=== PATIENT | female | born 1965 | race Caucasian/White ===

== ENCOUNTER → 2020-11-06 09:58 | Outpatient (CLI) | payer BC, SELFPAY | DX: R10.9 Unspecified abdominal pain (principal); R51.9 Headache, unspecified; R11.2 Nausea with vomiting, unspecified; R19.7 Diarrhea, unspecified | CPT/HCPCS: 87635; U0005; U0003 ==

== ENCOUNTER 2021-09-12 07:39 | Emergency (ER) | payer BC, SELFPAY ==
[2021-09-12 07:39] VITALS: BP 135/85; PULSE 87; RESP 16; TEMP 36.1; O2SAT 96; BMI 38.0
[2021-09-12 07:41] VITALS: BP 135/85; PULSE 87; RESP 16; TEMP 36.1; O2SAT 96
[2021-09-12 07:47] VITALS: O2SAT 90; O2SAT 96
[2021-09-12 08:01] VITALS: O2SAT 96
--- NOTE | 2021-09-12 08:04 | EDS_ITS ---
HPI History of Present Illness Chief Complaint: Shortness of Breath Informant: patient Narrative Narrative: Patient is on day 6 of symptoms. She is concerned she may have Covid. 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 She states they see 5000 people every 3 hours through the store. She started with some fevers myalgias. She has had slight runny nose. She has a dry mouth but not a sore throat. She has a little bit of a cough mostly when she talks a lot. No productivity. No hemoptysis. No chest pain. She has slight myalgias. She has not had nausea vomiting or diarrhea. However, she has significantly reduced appetite. She has no interest in food. She states her taste is significantly off and she has no smell at all. She did get the influenza shot back in July but has not had the Covid vaccine. Nothing really makes her symptoms better or worse. Despite occasional cough, she is not actually short of breath. No abdominal pain. [facility] Medical History Diarrhea Fatigue Finger Surgery Incontinence Severe headache Home Medications dexamethasone [Decadron] 6 mg PO DAILY #9 tab 09/12/21 [Rx Last Taken Unknown] Allergy/AdvReac Type Severity Reaction Status Date / Time iodine Allergy Rash Verified 09/12/21 07:39 meperidine [From Demerol] Allergy unknown Verified 09/12/21 07:39 Family History Mother Diabetes Brother Diabetes Grandfather Myocardial infarction Surgical History History of tonsillectomy Hx of section Social History Smoking Status: Former smoker alcohol intake: never ROS ROS ED Constitutional Constitutional ED: Reports chills, fever(s), subjective and sweats; Denies weight loss Eyes Eyes: Denies blurry vision ENT ENT ED: Reports rhinorrhea; Denies sore throat Cardiovascular Cardiovascular: Denies chest pain Respiratory/Chest Respiratory/Chest: Reports cough; Denies dyspnea, dyspnea on exertion or sputum Gastrointestinal Gastrointestinal: Reports other Details: No appetite. ; Denies abdominal pain, diarrhea, nausea or vomiting Genitourinary Genitourinary ED: Denies dysuria Musculoskeletal Musculoskeletal: Reports myalgias; Denies arthralgias Integumentary Denies rash Neurologic Neurologic: Denies headache(s), paresthesias or weakness Endocrine Endocrinology: Denies polydipsia or polyuria Allergic/Immunologic Allergic/Immunologic ED: Denies mouth swelling or urticaria EXAM Physical Exam Const Vital Signs: 09/12/21 07:39 09/12/21 07:41 09/12/21 07:47 Temperature 96.9 F L 96.9 F L Temperature Source Temporal Temporal Pulse Rate 87 87 Respiratory Rate 16 16 Respiratory Effort Short of Breath Labored Blood Pressure 135/85 H 135/85 H Blood Pressure Mean 101 101 Pulse Ox 96 96 Oxygen Delivery Method Room Air Room Air Room Air Positive well nourished and well developed General Appearance ED: well developed and NAD; Negative for pallor HEENT Reports dry mucous membranes Negative for trauma or tenderness Mouth ED: Yes dry mucous membranes Mouth: dry mucous membranes Eyes EOMs intact bilaterally General Eye ED: Negative for pale conjunctiva or scleral icterus Neck no JVD Chest Wall inspection of chest normal Resp normal respiratory effort and clear to auscultation bilaterally Effort and Inspection: Negative for pain with movement Auscultation: Negative for rales, rhonchi or wheezes Cardio regular rate and regular rhythm GI normal to inspection, nondistended, normoactive bowel sounds and non-tender Palpation: soft Back/Spine no CVA tenderness Extremity General Extremety ED: Negative for edema or tenderness General Extremity: Negative for edema Neuro Sensorium / Orientation: alert Psych mental status grossly normal Skin no rashes or lesions noted General Skin Exam: Negative for jaundice or pallor MDM MDM MDM Narrative Medical decision making narrative: Patient's x-ray is consistent with Covid. Her Covid is positive. When she walks she felt well. Her saturations were 90% which were a little bit lower than normal but do not meet criteria for oxygen. We can get her home. However I told her to be very cautious. We discussed reasons to return. If she can check her oxygen sats at home that would be great. Although she does not meet criteria for oxygen here, her sats are a little lower. I will start Decadron because of this. I will also put in referral for monoclonal therapy. Radiography Diagnostic Testing: Clinical Impression(s) from Imaging Studies Chest X-Ray 09/12/21 08:09 IMPRESSION: Underexpanded lungs with subtle opacifications in both lung espinoza, no demonstrated effusions. Differential as described above. Follow-up recommended to ensure resolution Electronically Signed: Floyd Iraheta MD at 8:31 EST , Service support , Discharge Plan Triage Chief Complaint: Shortness of Breath ED Provider: Morris Castrejon Dx/Rx/DC Orders Clinical Impression: Pneumonia due to 2019 novel coronavirus Instructions: Caring for Someone Who Has COVID-19 Prescriptions: New dexamethasone [Decadron] 6 mg tablet 6 mg PO DAILY Qty: 9 RF: 0 Other Ambulatory Orders: COVID Outpatient Monoclonal Antibody Referral (Routine) Timeframe: 1 Day Facility: [facility] - Location: [facility] Ordered By: Dr. Morris Castrejon Primary Care Provider: Care Physician,No Primary Referrals: Wendy Aleman MD [STAFF PHYSICIAN] - 1 Week if not improving Care Physician,No Primary [Primary Care Provider] - Disposition Disposition: Home, Self Care
--- NOTE | 2021-09-12 08:09 | RAD_ITS ---
STUDY: X-RAY CHEST REASON FOR EXAM: Female, 56 years old. Fever and cough TECHNIQUE: Single AP portable view of the chest. COMPARISON: 10/19/2012 FINDINGS: The lungs are underexpanded with chronic elevation of the right hemidiaphragm. Subtle interstitial opacifications in both lung espinoza suggest pneumonitis but can also be seen with pulmonary vascular congestion, or early changes of Covid pneumonia There is no demonstrated pleural abnormality. Normal size heart. Normal mediastinum and dolly. Normal visualized pulmonary arteries. Normal visualized aortic arch and descending thoracic aorta. There are diffuse degenerative changes of the visualized thoracic spine. There is degenerative osteoarthritis of the bilateral shoulders. There is no demonstrated abnormality of the visualized soft tissue structures of the upper abdomen. RAD/Chest 1 View (Portable) IMPRESSION: Underexpanded lungs with subtle opacifications in both lung espinoza, no demonstrated effusions. Differential as described above. Follow-up recommended to ensure resolution Electronically Signed: Floyd Iraheta MD at 8:31 EST , Service support ,
[2021-09-12] MEDS: dexAMETHasone 4 MG Tablet 6 MG PO (09:26)
[2021-09-12 09:28] VITALS: BP 117/67; PULSE 65; RESP 16; O2SAT 98
== END 2021-09-12 09:29 | disposition home or self-care (01) ==
PROVIDERS: Emergency Provider Emergency Medicine
DX: U07.1 COVID-19 (principal); J12.82 Pneumonia due to coronavirus disease 2019; Z87.891 Personal history of nicotine dependence
CPT/HCPCS: 71045; 87426; 99283

== ENCOUNTER 2021-09-13 17:21 | Outpatient (CLI) | payer BC, SELFPAY ==
[2021-09-13 17:54] VITALS: BP 118/50; PULSE 77; RESP 18; TEMP 38.6; O2SAT 99
[2021-09-13] MEDS: Acetaminophen 325 MG Tablet 650 MG PO (17:59)
[2021-09-13] MEDS: 0.9% Saline Lock 10 ML Syringe IV (18:00)
[2021-09-13 18:30] VITALS: BP 120/65; PULSE 70; RESP 16; TEMP 37.8; O2SAT 94
[2021-09-13 19:19] VITALS: BP 101/50; PULSE 84; RESP 16; TEMP 38.1; O2SAT 95
== END 2021-09-13 19:32 | disposition home or self-care (01) ==
LOC: MS3OUT 17:22 → MS3 17:22
PROVIDERS: Referring Provider Nurse Practitioner Adult Health; Visit Provider Nurse Practitioner Adult Health
DX: Z23 Encounter for immunization (principal); U07.1 COVID-19
CPT/HCPCS: J7050; M0245; Q0245; A4216

== ENCOUNTER 2022-04-03 13:56 | Emergency (ER) | payer OTHER, BC, SELFPAY ==
[2022-04-03 13:57] VITALS: BP 175/83; PULSE 83; RESP 16; TEMP 36.4; O2SAT 97; BMI 36.6
--- NOTE | 2022-04-03 13:59 | RAD_ITS ---
STUDY: X-RAY - RIGHT HAND REASON FOR EXAM: Female, 56 years old. POSSIBLE GLASS FB TECHNIQUE: 3 view(s) of the hand. COMPARISON: None. FINDINGS: Normal radiocarpal articulation. Normal distal radioulnar joint. Normal visualized carpal bones. Normal carpal articulations Normal carpometacarpal articulation of the thumb. Normal second through fifth carpometacarpal joints. Normal metacarpi. Normal metacarpophalangeal joint of the thumb. Normal interphalangeal joint of the thumb. Normal proximal and distal phalanges of the thumb. Normal metacarpophalangeal joints of the second through fifth fingers. Normal proximal and distal interphalangeal joints of the second through fifth fingers. Normal phalanges of the second through fifth fingers. The soft tissue structures are unremarkable. RAD/Hand Min 3 Views IMPRESSION: Normal x-ray examination of the hand. Electronically Signed: Keith Gross MD at 14:30 EDT ,
[2022-04-03 14:10] VITALS: BP 175/83; PULSE 83; RESP 16; TEMP 36.4; O2SAT 97; BMI 36.6
--- NOTE | 2022-04-03 14:51 | EDS_ITS ---
HPI History of Present Illness HPI Narrative: Right hand laceration at work. Chief Complaint: Laceration Informant: patient Occured/Mechanism Mechanism/Context: Yes injury Onset/Context/Timing Onset: Today Context: Sudden Onset Timing: Continuous Location: Dorsum right hand between the thumb and right index finger. Current Severity: Mild Maximum Severity: Mild Associated Symptoms Associated Symptoms: Negative for Parasthesia, Weakness or Loss of Funtion Narrative Narrative: 56-year-old female [id number]. Works at [employer]. She went to slide and close a glass door at work and it shattered and cut the dorsum of her right hand. Unsure of her last tetanus shot therefore that will be updated. She denies any other injuries. She denies any numbness. Tetanus Immunization: Unknown Prior similar symptoms: No Recent Illness/Hospitalization: No PFSH PFSH Medical History Diarrhea Encounter for screening for COVID-19 Fatigue Finger Surgery Incontinence Severe headache URI (upper respiratory infection) no medical history Home Medications NK 04/03/22 [History Last Taken Unknown] Allergy/AdvReac Type Severity Reaction Status Date / Time iodine Allergy Rash Verified 01/28/22 10:36 meperidine [From Demerol] Allergy unknown Verified 01/28/22 10:36 Family History Mother Diabetes Brother Diabetes Grandfather Myocardial infarction Surgical History History of tonsillectomy Hx of section Social History Smoking Status: Former smoker alcohol intake: never ROS ROS ED ROS Narrative No recent illness. Review of Systems ROS Unobtainable: Denies due to encephalopathy Constitutional Constitutional ED: Denies chills Eyes Eyes: Denies blurry vision ENT ENT ED: Denies ear pain Cardiovascular Cardiovascular: Denies chest pain Respiratory/Chest Respiratory/Chest: Denies cough Gastrointestinal Gastrointestinal: Denies abdominal pain Genitourinary Genitourinary ED: Denies dysuria Musculoskeletal Musculoskeletal: Denies back pain Integumentary Denies abscess Neurologic Neurologic: Denies headache(s) Psychiatric Psychiatric: Denies anxiety Endocrine Endocrinology: Denies cold intolerance Hematologic/Lymphatic Hematologic/Lymphatic: Denies easy bleeding Allergic/Immunologic Allergic/Immunologic ED: Denies mouth swelling EXAM Physical Exam Narrative Exam Narrative: 56-year-old female no acute distress. Vital signs stable afebrile. HEENT exam normal. Neck nontender. Lungs are clear. Heart regular rhythm no murmur. Abdomen soft nontender. Patient moving all 4 extremities. Neurovascularly intact. Specifically dorsum of the right hand there is a 2.5 cm laceration on the back of the hand between the thumb and index finger. It does open and will need to be repaired. There is minimal oozing of blood. No pulsatile bleeding. No infection. No obvious foreign body. She has full flexion-extension all digits of her hand. She can extend against resistance. There is no signs of any tendon injury. Normal touch sensation and cap refill. Const Vital Signs: 04/03/22 13:57 04/03/22 14:10 Temperature 97.6 F L 97.6 F L Temperature Source Temporal Temporal Pulse Rate 83 83 Respiratory Rate 16 16 Blood Pressure 175/83 H 175/83 H Blood Pressure Mean 113 113 Pulse Ox 97 97 Oxygen Delivery Method Room Air Room Air Positive well nourished and well developed; Negative for cachectic or contractures General Appearance ED: well developed; Negative for cachectic or contractures Nutritional Appearance: Negative for cachectic HEENT Reports moist mucous membranes normocephalic and atraumatic; Negative for trauma or tenderness Eyes PERRL Neck full ROM and supple General: Negative for tenderness Chest Wall inspection of chest normal and palpation of chest normal Resp normal respiratory effort and clear to auscultation bilaterally Effort and Inspection: Negative for pain with movement Auscultation: Negative for rales, rhonchi or wheezes Cardio regular rate, regular rhythm, S1 normal heart sound and S2 normal heart sound Rate: Negative for bradycardia Rhythm: Negative for abnormal rhythm GI non-tender, non-distended and no masses Inspection: Negative for abdominal distention Auscultation: normoactive bowel sounds Palpation: soft; Negative for tender or guarding Back/Spine no CVA tenderness General Back: Negative for CVA tenderness Cervical Spine: Negative for cervical spine tenderness Extremity normal to inspection and full ROM Extremity Narrative: Except dorsum of right hand with a laceration on the back of the hand around the webspace between the thumb and index finger. He will need suture repaired. Neuro oriented x3, moves all extremities, no focal motor deficits and no sensory deficits noted Sensorium / Orientation: alert, oriented to person, oriented to place and oriented to time; Negative for orientation impaired, lethargic or stuporous Sensory Exam: No sensory level loss detected Motor Exam: strength 5/5 throughout Psych mental status grossly normal Mood & Affect: Negative for depressed or anxious Skin General Skin Exam: Negative for petechiae Lesions: no lesions Rashes: no rashes Trauma: laceration; Negative for no lacerations or abrasions MDM MDM MDM Narrative Medical decision making narrative: 56-year-old with a workers comp injury with laceration dorsum of right hand. This will need to be repaired. Tetanus to be updated. X-ray was obtained no foreign body noted. Right hand x-ray, 3 views interpreted by myself and radiologist as no acute abnormality. No fracture. No foreign body noted. Radiography Diagnostic Testing: Clinical Impression(s) from Imaging Studies Hand X-Ray 04/03/22 13:59 IMPRESSION: Normal x-ray examination of the hand. Electronically Signed: Keith Gross MD at 14:30 EDT , Procedures Lacerations Dorsum right hand laceration: Length: 1.18 in Depth: Skin Shape: Linear Prep: Betadine and Shure-Clens Laceration repair: Irrigated, Lidocaine and Skin sutures Number of Sutures/Nicolle: 3 Suture Information: Ethilon, Simple and 5-0 Comment: Dorsum right hand laceration. 2-1/2 to 3 cm. Local anesthetized lidocaine. Cleaned with Shur-Clens, iodine and washed and irrigated with saline. Explored. No foreign bodies noted. Closed using 3 simple interrupted 5-0 Ethilon sutures. Proper hemostasis wound closure obtained. Discharge Plan Triage Chief Complaint: Laceration ED Provider: Shmuel Engle Dx/Rx/DC Orders Clinical Impression: Hand laceration, Encounter related to worker's compensation claim Instructions: ED Laceration, Hand: All Closures Prescriptions: No Action NK Primary Care Provider: Care Physician,No Primary Referrals: Corporate,Care [GROUP OF PHYSICIANS] - 10 Day for suture removal Care Physician,No Primary [Primary Care Provider] - Activity Restrictions/Additional Instructions: Clean wound gently and carefully daily with soap and water. Dry thoroughly. Apply antibiotic ointment. Stitches out in 7 to 10 days. Any signs of infection such as redness, pus, fever or streaks return. Disposition Disposition: Home, Self Care
[2022-04-03] MEDS: Diphth,Pertuss(Acell),Tet Vac 0.5 ML Vial IM (15:09)
[2022-04-03] MEDS: Lidocaine 1% (20 ml mdv) 20 ML Vial 10 ML INFILT (15:09)
== END 2022-04-03 16:32 | disposition home or self-care (01) ==
PROVIDERS: Emergency Provider Emergency Medicine; Visit Provider Emergency Medicine
DX: S61.411A Laceration without foreign body of right hand, initial encounter (principal); W25.XXXA Contact with sharp glass, initial encounter; Y92.512 Supermarket, store or market as the place of occurrence of the external cause; Y93.89 Activity, other specified; Y99.0 Civilian activity done for income or pay; Z87.891 Personal history of nicotine dependence
CPT/HCPCS: 12002; 73130; 90715; 99282

== ENCOUNTER → 2023-11-13 | Outpatient (CLI) | payer OTHER, SELFPAY ==
--- NOTE | 2023-11-13 09:05 | RAD_ITS ---
STUDY: X-RAY CHEST REASON FOR EXAM: Female, 58 years old. Cough -- STAT TECHNIQUE: PA and lateral views of the chest. COMPARISON: None. FINDINGS: There is elevation of the right hemidiaphragm. The lungs are clear. There is no demonstrated pleural abnormality. There is mild cardiac enlargement. Normal mediastinum and dolly. Normal visualized pulmonary arteries. Normal visualized aortic arch and descending thoracic aorta. Normal visualized thoracic spine. Normal visualized ribs, clavicles, and shoulders. There is no demonstrated abnormality of the visualized soft tissue structures of the upper abdomen. RAD/Chest PA and Lateral IMPRESSION: Mild cardiomegaly. The lungs are clear. Electronically Signed: David Winters MD at 9:26 EST ,
== END | disposition home or self-care (01) ==
PROVIDERS: Referring Provider Physician Assistant; Visit Provider Physician Assistant
DX: R05.9 Cough, unspecified (principal)
CPT/HCPCS: 71046

== ENCOUNTER → 2024-07-27 | Outpatient (CLI) | payer BC, SELFPAY ==
[2024-07-27 09:50] LABS: Creatinine, Serum 0.82 mg/dL (0.55-1.02); EST Glomerular Filtration Rate 76 mL/min (>60); Est Glom Filt Rate - Afr Amer 92 mL/min (>60)
== END | disposition home or self-care (01) ==
PROVIDERS: Referring Provider Surgery; Visit Provider Surgery
DX: K43.9 Ventral hernia without obstruction or gangrene (principal)
CPT/HCPCS: 36415; 82565